=== PATIENT | male | born 1950 | race Caucasian/White ===

== ENCOUNTER → 2024-06-06 10:15 | Outpatient (REF) | payer MEDICARE, OTHER, SELFPAY | LOC: HWRCS 10:15 | PROVIDERS: ATTENDING PHYSICIAN Internal Medicine; FAMILY PHYSICIAN Family Medicine | DX: I25.810 Atherosclerosis of coronary artery bypass graft(s) without angina pectoris (principal); I10 Essential (primary) hypertension; I35.1 Nonrheumatic aortic (valve) insufficiency | CPT/HCPCS: 93306 ==

== ENCOUNTER 2025-04-08 06:48 | Inpatient (IN) | payer OTHER, SELFPAY ==
[2025-04-08] VITALS (11 sets, daily range): BP systolic 108–133; BP diastolic 63–84; PULSE 80–84; BMI 27.4
[2025-04-08 04:20] LABS: % Basophils 1.2 % (0-2); % Immature Granulocytes 0.3 % (0-0.5); % Monocytes 7.1 % (1.7-9.3); % Neutrophils 55.4 % (42.2-75.2); Absolute Basophils 0.1 10^3/uL (0-0.2); Absolute Eosinophils 0.2 10^3/uL (0-0.7); Absolute Lymphocytes 1.9 10^3/uL (1.2-3.4); Absolute Monocytes 0.4 10^3/uL (0.1-0.6); Absolute Neutrophils 3.3 10^3/uL (1.4-6.5); Hematocrit 29.5 % (39.0-52.0); Hemoglobin 8.8 g/dL (13.0-18.0); Mean Corp Hgb Conc. 29.8 g/dL (33.0-37.0); Mean Corpuscular Hgb 19.7 pg (27.0-31.0); Mean Platelet Volume 9.1 fL (7.4-10.4); Nucleated Red Blood Cells % 0 % (-); Platelet Count 288 10^3/uL (130-400); Red Blood Cell Count 4.47 10^6/uL (4.70-6.10); Red Cell Dist. Width 16.9 % (11.5-14.5); White Blood Cell Count 5.9 10^3/uL (4.8-10.8)
--- NOTE | 2025-04-08 04:33 | ED.GENMED ---
History of Present Illness
General
Chief Complaint: Breathing Problem
Source: patient and spouse
Exam Limitations: none
Time Seen by Provider: 04/08/25 04:03
Nursing documentation reviewed up to this point in time: agreed with
History of Present Illness
History of Present Illness:
This is a 74-year-old gentleman who resides at home with his . He has history of hypertension, hyperlipidemia, GERD, BPH as well as history of CAD with history of CABG 2000, PTCA with stent 2016.
He presents with complaints of mild URI symptoms that began 1 week ago. Moderate nasal congestion, intermittent clear rhinorrhea, intermittent dry cough occasionally productive of clear phlegm. He denies fever. Cough and cold symptoms had been
improving but tonight he awoke with somewhat abrupt onset of shortness of breath feeling that he could not take a full breath. Symptoms improved with sitting up but he continues with a sense that he cannot take a full deep breath.
No close contacts with similar symptoms.
No recent travel.
He denies leg pain or swelling.
He denies chest pain, denies palpitations, denies dizziness nor lightheadedness. He has however had intermittent fatigue more so with activity over the past 2 weeks.
He has also noted some black stools intermittently over the past 2 months. He denies abdominal pain, denies indigestion. He denies NSAID use. Chronically maintained on low-dose aspirin and Plavix.
Past History
Past History
ED Past Medical History: CAD, GERD, HTN, Hypercholesterolemia and Other (perirectal abscess, BPH)
ED Past Surgical History: Appendectomy, Bowel resection (Due to diverticulitis) and Cardiac (CABG 2000, PTCA with stent 2016)
Social History
Tobacco: Non-smoker
Alcohol: Occasional
Personal:
Living: with family
Employment: Retired
Family History
Family History: Other (Noncontributory)
Phy Exam
Physical Exam
Physical Exam:
GENERAL: 74-year-old gentleman appears his stated age, awake and alert, pleasant, appears in no acute distress. Respirations are easy and nonlabored. He is noted to have mild nasal, stuffy voice. No cough appreciated during exam. is
accompanying
EYE: pupils equal. Mildly pale conjunctiva. Anicteric
NECK: Supple, nontender, no meningismus, no significant adenopathy.
ENT: posterior pharynx is clear, oral mucosa is moist. TM clear b/l, nares have moderately boggy pale blue turbinates with scant clear rhinorrhea. Mild focal mucosal erythema right medial nasal jimmie.
CARDIAC: Irregularly irregular at a rate of 70-80. No murmur.
LUNGS: Clear breath sounds bilaterally, no acute respiratory distress, no wheezes/rales/rhonchi
ABDOMEN: Soft, nondistended, without focal tenderness, normoactive BS.
Rectal exam reveals scant brown stool within the vault that is heme-negative.
NEUROLOGICAL: Alert and oriented x3, no focal neuro deficits.
SKIN: Warm and dry, mildly pale in color, skin intact. No rash.
MUSCULOSKELETAL: No C/C/E. peripheral pulses are full and equal b/l. No palpable tenderness.
PSYCH: Normal and appropriate interaction.
Scores
Heart Failure Risk
Heart Failure Risk Score: Yes
History of Stroke or TIA: No
History of intubation for respiratory distress: No
Heart rate on ED arrival >/= 110: No
SaO2 <90% on arrival on room air: No
HR >/=110 during 3min walk test (or too ill to perform test): Yes
ECG has acute ischemic changes: No
Urea >/=12mmol/L (BUN 33.6mg/dL): No
Serum CO2>/=35mmol/L: No
Troponin I or T elevated to [place] Level (0.4mg/dL): No
NT-proBNP >/=5,000ng/L (5,000pg/ml): No
HF Risk Score: 2
Admission Status: MEDIUM RISK 9.2% Consider observation or discharge to home with homecare & f/u visit to PCP/Administrative Intern, or SNF for treatment
Course
Orders/Labs/Results
Orders:
Orders
04/08/25 04:05
Electrocardiogram (*1) Urgent
Reason for Study: Shortness of Breath
EKG- Treatment ONCE
04/08/25 04:09
Complete Blood Count/With Diff Urgent
Comprehensive Metabolic Panel Urgent
D-Dimer Urgent
NT-proBNP Urgent
Troponin I Urgent
04/08/25 05:37
CR Chest - 2 Views Urgent
Comment:
Reason For Exam: cough, SOB
04/08/25 05:43
Pantoprazole [Protonix IV] 40 mg IV NOW STA
04/08/25 06:00
Flush (0.9% Sodium Chloride) [Flush (Nss)] See Dose Instructions IV PER PROTOCOL
04/08/25 06:01
Furosemide [Lasix] 40 mg IV NOW STA
04/08/25 06:26
Admit/Transfer Patient As Directed
Co-Sign Provider:
Level of Care: Inpatient admission
Assign to:: Telemetry
Physician / Group: Ela
Diagnosis: symptomatic anemia
Reason for Telemetry: Subacute Heart Failure
Date to Stop Telemetry: 04/10/25
Time to Stop Telemetry: 11:00
Reason for Hospitalization: symptomatic anemia
Expected length of stay greater than two midnights?: Yes
ELOS- Estimated Length of Stay in days: 2
I certify the patient meets the requirements for IP care: Yes
PRN Pain Medication Management As Directed
May give lesser potent ordered pain med per pt: Yes
preference::
Protocol:: Medication orders for pain may be administered in a
manner that supports deferring to patient preference
when the pt is:
- Requesting an ordered lesser potent pain medication.
Least to most potent pain medications are defined
as: acetaminophen < NSAID < tramadol < opioids
(morphine, oxycodone, hydromorphone).
- Requesting a lesser dose of the same medication IF
ORDERED.
- Requesting a less intrusive route of administration
if both routes are prescribed by the provider (PO <
IV).
04/08/25 06:27
Code Status As Directed
Resuscitation Status: Full Code
04/10/25 11:00
DC Protocol for Telemetry ONCE
Abnormal Lab Results
04/08/25
04:09
RBC 4.47 L 10^6/uL
(4.70-6.10)
Hgb 8.8 L g/dL
(13.0-18.0)
Hct 29.5 L %
(39.0-52.0)
MCV 66.0 L fL
(80.0-94.0)
MCH 19.7 L pg
(27.0-31.0)
MCHC 29.8 L g/dL
(33.0-37.0)
RDW 16.9 H %
(11.5-14.5)
D-Dimer 0.71 H ug/mlFEU
(0.00-0.50)
Chloride 109 H mmol/L
(98-107)
Glucose 106 H mg/dl
(70-99)
04/08/25 04:09
04/08/25 04:09
Vital Signs
Initial and Last Documented VS:
Initial Vital Signs
Temp Pulse Resp BP Pulse Ox
97.5 F 68 24 108/64 100
04/08/25 03:59 04/08/25 03:59 04/08/25 03:59 04/08/25 03:59 04/08/25 03:59
Last Documented Vital Signs
Temp Pulse Resp BP Pulse Ox
97.5 F 80 17 133/84 99
04/08/25 03:59 04/08/25 06:17 04/08/25 06:00 04/08/25 06:17 04/08/25 06:00
MDM/Problems Addressed
Differential Diagnosis Includes:
Concern for viral URI, pneumonia, CHF, GERD, ACS, PE.
Overall nontoxic in appearance. Vital signs within normal limits. Pulse ox 100% on room air.
Will check labs including troponin, D-dimer.
Will check EKG.
Will consider imaging depending on results.
Chronic conditions affecting care: HTN and CAD
*Radiology
Radiology exam reviewed: preliminary read by ED provider (Chest x-ray shows mildly increased interstitial markings compared to previous concern for mild CHF.)
*Pulse Oximetry
Patient hypoxic: no
*EKG
Interpreted by ED Provider?: Yes
Interpretation: abnormal
Comparison EKG: changes noted (Atrial fibrillation with controlled ventricular response is new compared to previous EKG January 2022 showing normal sinus rhythm with unifocal PVCs)
Rate: normal
Rhythm: a-fib
Redkey: normal axis
Interval: normal QT interval
QRS Pattern: normal QRS
Ischemia: no ischemia
*Parts Advisor Interpretation
Rate: normal
Interpretation: abnormal
Rhythm: a-fib
*Critical Care Note
Total Time (30-74mins, 75-104mins- exclusive of procedures): Not Applicable
Update Note
Update Note:
04:45
Labs thus far remarkable for moderate anemia with microcytic indices which is new compared to previous labs 2021. Patient has had some black stools over the past 2 months and notes a 2-week history of moderate exertional fatigue.
He reports undergoing unremarkable colonoscopy perhaps 5 years ago.
Routine visit with his PCP, Dr. Radah Pennington November of this year with reported unremarkable laboratory studies at that time.
Although rectal exam negative for blood I have significant concern for slow GI blood loss. Concern for symptomatic anemia.
Also note that EKG shows atrial fibrillation with controlled ventricular response. Patient has no prior history of A-fib. At this point unclear as to onset of A-fib but he remains hemodynamically stable.
05:40
D-dimer normal when corrected for age.
BNP is elevated at 2000. Troponin is normal.
Chest x-ray concerning for mild CHF. I suspect CHF is related to anemia.
Will give an IV dose of Lasix and admit to hospitalist service.
ED Attending Note
-
Portions of this chart may have been created with voice recognition software.� Occasional wrong word or��sound alike� substitutions may have occurred due to the inherent limitations of voice recognition software.
Discharge Plan
Departure
Patient Disposition: Admit
Date of Disposition: 04/08/25
Time of Disposition: 05:41
Admit to: Telemetry
Admit to doctor: Ela
Presentation/result/management discussed w/ accepting MD/DO: Hospitalist
Condition: Fair
Discharge Problem:
Symptomatic anemia, Atrial fibrillation with controlled ventricular rate, Atrial fibrillation, new onset
Interventions
Interventions:
*Risk Screen - Suicide Last Done: 04/08/25 03:59
*General Assessment Last Done: 04/08/25 04:06
*Neglect/Abuse Screening Last Done: 04/08/25 03:59
*ED- Fall Risk Assessment Last Done: 04/08/25 04:06
*ED COVID-19 Vaccine History Last Done: 04/08/25 04:06
ED- Cardiac Assessment Last Done: 04/08/25 04:25
ED- Pulmonary Assessment Last Done: 04/08/25 04:25
[2025-04-08 04:50] LABS: ALT (SGPT) 32 U/L (0-50); AST (SGOT) 45 U/L (17-59); Albumin 4.2 g/dl (3.5-5.0); Alkaline Phosphatase 57 U/L (38-126); Blood Urea Nitrogen 19 mg/dl (9-20); Calcium 9.5 mg/dl (8.4-10.2); Carbon Dioxide 26 mmol/L (22-30); Chloride 109 mmol/L (98-107); Estimated Creatinine Clearance 49 ml/min; Glucose 106 mg/dl (70-99); Potassium 4.6 mmol/L (3.5-5.1); Sodium 141 mmol/L (135-145); Total Bilirubin 0.6 mg/dl (0.2-1.3); Total Protein 6.9 g/dl (6.3-8.2); eGFR > 60.00
[2025-04-08 04:57] LABS: D-Dimer 0.71 ug/mlFEU (0.00-0.50)
[2025-04-08 05:00] LABS: NT-proBNP 2040 pg/ml; Troponin I < 0.012 ng/ml
--- NOTE | 2025-04-08 05:45 | HPS.HSE ---
Family Physician
-
Family Physician: Radha Pennington
Chief Complaint
-
Acute shortness of breath, nocturnal dyspnea
History of Present Illness
This is a 74-year-old with past medical history significant for CAD status post CABG, status post stenting last in 2017, hypertension, GERD/esophagitis, history of ischemic colitis who presents to the emergency department with acute shortness of
breath and nocturnal dyspnea.
Patient reported that at around 2 AM he woke from sleep feeling very short of breath. He felt that he could not catch his breath and he had to sit up. When he sat up the bleeding was little bit improved but still symptomatic. He broke into a
sweat and felt nauseous. After a few minutes he tried to lay back down and he got more short of breath again and he had to sit up. Due to the symptoms he and his spouse said come to the emergency department. He denies heaviness or chest pain. He
denies any pleuritic symptoms. He denies any radiation.
Patient reported that over the last 6 weeks he has been having more exertional dyspnea and mostly exertional fatigue. 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 He denies exertional chest pain.
He denies feeling dizzy or lightheaded. He denies any palpitations. Patient reported that he has had recent back more constipated stools. This is exacerbated his hemorrhoidal bleeding episodes resulting in occasionally filling the bowl with some
blood. He is on dual antiplatelet therapy but denies any abdominal pain nausea or vomiting. Patient denies other reflux symptoms. He is currently taking pantoprazole daily.
He denies any lower extremity edema. He denies any prior episodes of nocturnal dyspnea or orthopnea. Patient stated that when he last had his CABG and stenting he never had chest pain. He was noted to have high blood pressure went for a
cardiology evaluation and thereafter required a CABG. He has not had any symptomatic chest pain since then.
He denies any history of atrial fibrillation.
In the emergency department he was satting 100% on room air, temperature was 91.5, blood pressure was 117/70 with pulse of 84. ECG shows atrial fibrillation at rate of 66. Her chest x-ray shows increased interstitial markings but no consolidation
or effusion.
Troponin was negative at 0.012. BNP was elevated at 2039. CBC was notable for hemoglobin of 8.8 with MCV of 66 and a platelet count of 281. Electrolytes are within normal limits. BUN/creatinine were similar to prior at 99 1.2. Echo from 2013
shows LV ejection fraction that is 60 to 65%, stage II diastolic dysfunction.
Medical History
Past Medical History
Past Medical History: Reports Other
Additional Past Medical History:
Coronary disease status post CABG x 2
Hypertension
Diverticular disease status post colon resection
Hypertension
History of ischemic colitis
Past Surgical History: Reports Other
Additional Past Surgical History:
CABG x 2, PIRES to LAD, YASEMIN to OM1 (2004)
Cardiac stenting of proximal and mid RCA 2016
Hemorrhoidectomy
Social History
Tobacco: Non-smoker
Alcohol: Occasional
Drug: None
Personal:
Living: With Family
Employment: Retired
Family History
Family History: Not pertinent
Allergies / Home Medications
Allergies reflects when Allergies were last updated in [facility].
Home Medications with original date entered in [facility]
Allergy/Medication List:
Allergies
Allergy/AdvReac Type Severity Reaction Status Date / Time
bee venom protein (honey bee) Allergy Rash Verified 04/08/25 04:02
Home Medications
aspirin 81 mg chewable tablet 81 mg PO DAILY Blood clot prevention/tx 07/10/17
atorvastatin 80 mg tablet 80 mg PO DAILY High cholesterol 07/10/17
clopidogrel 75 mg tablet 75 mg PO DAILY #30 tabs 07/10/17
pantoprazole 40 mg tablet,delayed release 40 mg PO DAILY Gastrointestinal issue 07/10/17
amlodipine 5 mg tablet 5 mg PO DAILY Blood pressure 02/26/21
ezetimibe 10 mg tablet 10 mg PO DAILY High cholesterol 02/26/21
folic acid 1 mg tablet 1 mg PO DAILY Supplement 02/26/21
metoprolol succinate 100 mg tablet,extended release 24 hr 100 mg PO BID Heart disease/condition 02/26/21
valsartan 160 mg-hydrochlorothiazide 25 mg tablet 1 ea PO DAILY Blood pressure 02/26/21
Review of Systems
-
History Source: Patient
Constitutional: Reports Fatigue
EENT: Reports No Symptoms
Respiratory: Reports Trouble Breathing
Cardiac: Reports Diaphoresis
Abdomen/GI: Reports No Symptoms
: Reports No Symptoms
Musculoskeletal: Reports No Symptoms
Skin: Reports No Symptoms
Neurological: Reports No Symptoms
Endocrine: Reports No Symptoms
Hematologic/Lymphatic: Reports No Symptoms
Psych: Reports No Symptoms
Physical Exam
Vital Signs
Vital Signs
Temp Pulse Resp BP Pulse Ox
97.5 F 84 16 117/73 100
04/08/25 03:59 04/08/25 04:15 04/08/25 04:15 04/08/25 04:05 04/08/25 04:15
Physical Exam
General: Well Developed, Well Nourished, No Apparent Distress, Comfortable and Conversant
HEENT: NormoCephalic, Anicteric, Moist mucous membranes and Atraumatic
Respiratory: Clear
Cardiac: S1/S2 and Irregular Rhythm
Breast: Deferred by me
GI: Soft, Non Tender, Non Distended and Normal Bowel Sounds
Rectal: Deferred by Provider
Genito-urinary: Deferred by me
Musculoskeletal: No Clubbing, No Cyanosis and No Edema
Skin: Warm
Neuro: AO x 3 and Nonfocal/grossly intact
Hematologic/Lymphatic: No Lymphadenopathy
Psych: Calm
Laboratory Results
-
04/08/25 04:09
04/08/25 04:09
Laboratory Results
Total Bilirubin 0.6 mg/dl (0.2-1.3) 04/08/25 04:09
AST 45 U/L (17-59) 04/08/25 04:09
ALT 32 U/L (0-50) 04/08/25 04:09
Alkaline Phosphatase 57 U/L (38-126) 04/08/25 04:09
Troponin I < 0.012 ng/ml 04/08/25 04:09
Data Reviewed
-
Diagnostic Radiology: Image Personally Visualized and interpreted
Medical Tests (Nuc Med, Echo, EKG etc): Image Personally Visualized and interpreted
Lab Data: Labs Reviewed by me
Old Records: Reviewed
Impression/Plan
-
IMPRESSION:
74-year-old with history of CAD status post CABG x 2, 20 years ago, stenting in 2016, hypertension, history of ischemic colitis in 2021 who presents to the emergency department with episode of nocturnal dyspnea/orthopnea, diaphoresis, no chest pain
and the recent history of the last 6 weeks of exertional fatigue/weakness. ECG was nonischemic and troponin is negative but was found to have new onset atrial fibrillation that is well-controlled. Patient is also found to have significant anemia
and elevated BNP. On exam he generally appears euvolemic but chest x-ray suggest mild interstitial edema.
PLAN:
1. Shortness of breath -multifactorial but acute episode of PND more suggestive of CHF versus ACS.
- admit to telemetry
- cycle cardiac enzymes
- since no cp and likely CHF will hold off further asa
- elevated bnp and orthopnea suggestive of new onset CHF, prior echo 2023 with diastolic dysfunction stage II and EF of 65%
- start lasix 20mg iv bid for now
- continue valsartan with hold parameters
- obtain echo, tsh,
- cardiology consultation
2. New onset AFIB - Rate controlled. ON metoprolol succinate 100mg bid for CAD.
- continue metoprolol
- CHADS2 > 2, AC recommendation
- will AC for now as there is concern for subacute blood loss anemia.
- GI consultation
3. Anemia - Microcytic anemia, Hgb 8.8, MCV 66. Prior Hgb was 13 with normal MCV in 2021 and presumably in early 2024 as it was not commented on by his physician. H/O dark large stools and intermittent bleeding hemorrhoids. On DAPT. No current
indication for plavix, stent placed 2016.
- hold plavix for now
- possible subacute gi bleed, clear liquid diet
- ppi iv bid
- hemoccult stool testing
- orthostatic vs
- iron panel, ferritin, retic
- likely will need IV iron
- GI consultation
DVT PPX - SCDs for now
Code status - Full Code
--- NOTE | 2025-04-08 06:00 | EDRN ---
Patient back from x-ray, hooked back up to monitor, Dr. Michaels in working on admission
[2025-04-08] MEDS: PROTONIX IV 40 MG IV ×2 (06:16→20:25)
[2025-04-08] MEDS: FLUSH (NSS) 1 FLUSH IV (06:17)
[2025-04-08] MEDS: LASIX 40 MG IV (06:17)
--- NOTE | 2025-04-08 09:15 | PTCARENOTE ---
Received pt from ED via stretcher. Pt AAOX3. Pox: 98% RA. A fib on electronic device monitor. Patient denies chest pain/SOB. Call corona within reach. Plan of care ongoing.
--- NOTE | 2025-04-08 09:42 | CON.GI ---
Addendum entered and electronically signed by Bettye Gan Do, MD 04/08/25 11:36:
I saw and examined the patient.
The ORTHOPEDIC CODER's note was reviewed and I agree with the note.
Comment: Casey is a 74yo M with h/o CABG (25yrs ago), colonic resection for diverticulitis and HTN who presents for SOB. Now resolved. He was noted by ER to be in new afib. GI consulted for anemia 8.8 noted to be 9.9 in Nov 2023. He reports
some BRBPR on toilet paper last 1.5yrs ago. He has h/o hemorrhoidectomy in past. He denies CP, palp, abd pain, diarrhea, constipation or wt loss. Does use ASA 81 and plavix last dose 526 AM. Vitals stable HR not fast, NTTP, NABS. Labs
reviewed. EGD/colon with Dr Bee last 2020
Impression
- Anemia
Heme neg brown stool with h/o BRBPR ddx includes hemorrhoids, ectasia, polyp or ulcer
Await iron panel
- New afib
- CABG
- H/o colonic resection for diverticulitis
- HTN
- H/o hemorrhoidectomy
- GERD
Recommendations
- Await iron studies, vit B12 and foalte
- C/w PPI
- Hold plavix last dose 26 AM
- Ok to c/w ASA 81mg daily
- Await cardiology evaluation. Pending above can determine if will do EGD/colon inpatient vs outpatient next week. Will need plavix washout
Recommendation
Original Note:
Consultation
-
Date/Time Consultation Requested: 04/08/25844
Date/Time Consultation Performed: 04/08/25939
Requesting Provider: Kerri Farmer MD
Performing Provider: ARNOLD Nelson, bettye Mtz MD
Reason for Consultation: anemia
Medical History
Chief Complaint / HPI
Chief Complaint: shortness of breath
History of Present Illness:
Pt is a 74yo with hx CAD with prior CABG/stents on chronic Plavix , HTN, diverticulitis with prior resection, prior ischemic colitis, GERD, esophagitis, HTN, hemorrhoidectomy with onset of shortness of breath with concern for cardiac etiology with
CHF and also noted with new onset afib. Asked to see with anemia with hbg 8.8 on admission with MCV 66. Prior hbg in December 9.9 with MCV 70 but noted normal in 11/2023. Noted heme neg in ER. Last EGD [address] Bee with noted gastritis,
normal duodenum and mild chronic inactive gastritis, bx neg. colonoscopy 2020with Dr. Bee with TA polyps, neg h pylori, neg metaplasia. hx occasional NSAID use 1 dose per month.
At this time patient admits to seeing red blood at time. Some times blood on paper and occasional 1 time per month with red in toilet bowl. Pt otherwise denies dysphagia, GERD, nausea, vomiting, abdominal pain , diarrhea, constipation, or
black stools. Pt was noted heme neg on ER.
Past Medical History
Past Medical History: GERD, HTN, Hypercholesterolemia and Other (diverticulitis, esophagitis, hemorrhoids, ischemic colitis )
Past Surgical History: Appendectomy, Bowel Resection, Cardiac (CABG, prior stents) and Other (I+D of post anal space abscess, retinal surgery )
Social History
Tobacco: Non-Smoker
Alcohol: Occasional (1-2 drinks 2-3 times per week)
Drug: Marijuana
Personal:
Living: With Family
Employment: Retired
Family History
Family History: Other (no family hx GI problems)
Allergies / Home Medications
Allergy/AdvReac Type Severity Reaction Status Date / Time
bee venom protein (honey bee) Allergy Rash Verified 04/08/25 04:02
�Medication �Instructions �Recorded
aspirin 81 mg chewable tablet 81 mg PO DAILY Blood clot 07/10/17
prevention/tx
atorvastatin 80 mg tablet 80 mg PO DAILY High cholesterol 07/10/17
clopidogrel 75 mg tablet 75 mg PO DAILY #30 tabs 07/10/17
pantoprazole 40 mg tablet,delayed 40 mg PO DAILY Gastrointestinal 07/10/17
release issue
amlodipine 5 mg tablet 5 mg PO DAILY Blood pressure 02/26/21
ezetimibe 10 mg tablet 10 mg PO DAILY High cholesterol 02/26/21
folic acid 1 mg tablet 1 mg PO DAILY Supplement 02/26/21
metoprolol succinate 100 mg 100 mg PO BID Heart 02/26/21
tablet,extended release 24 hr disease/condition
melatonin 10 mg tablet 10 mg PO HS 04/08/25
valsartan 160 1 tab PO DAILY 04/08/25
mg-hydrochlorothiazide 25 mg tablet
Review of Systems
-
History Source: Patient
Constitutional: Reports No Symptoms
EENT: Reports No Symptoms
Respiratory: Reports Trouble Breathing (sudden onset prior to admission )
Cardiac: Reports No Symptoms
Abdomen/GI: Reports Bloody Stools (occasional red blood per rectum )
: Reports No Symptoms
Musculoskeletal: Reports No Symptoms
Skin: Reports No Symptoms
Neurological: Reports No Symptoms
Endocrine: Reports No Symptoms
Hematologic/Lymphatic: Reports Bleeding (occasional rectal bleeding)
Vital Signs
Temp Pulse Resp BP Pulse Ox
97.8 F 90 16 129/80 98
04/08/25 09:02 04/08/25 09:02 04/08/25 09:02 04/08/25 09:02 04/08/25 09:02
Physical Exam
Exam
General: Well Developed, Well Nourished and No Apparent Distress
HEENT: Normocephalic and Anicteric
Respiratory: Clear
Cardiac: Irregular Rhythm (afib on Monitor )
GI: Non Tender and Normal Bowel Sounds
Musculoskeletal: No Clubbing and No Cyanosis
Skin: Warm and Dry
Neuro: Awake, Alert and AO x 3
Psych: Calm
Results
WBC 5.9 10^3/uL (4.8-10.8) 04/08/25 04:09
Hgb 8.8 g/dL (13.0-18.0) L 04/08/25 04:09
Hct 29.5 % (39.0-52.0) L 04/08/25 04:09
MCV 66.0 fL (80.0-94.0) L 04/08/25 04:09
Plt Count 288 10^3/uL (130-400) 04/08/25 04:09
Absolute Neuts (auto) 3.3 10^3/uL (1.4-6.5) 04/08/25 04:09
Sodium 141 mmol/L (135-145) 04/08/25 04:09
Potassium 4.6 mmol/L (3.5-5.1) 04/08/25 04:09
Chloride 109 mmol/L (98-107) H 04/08/25 04:09
Carbon Dioxide 26 mmol/L (22-30) 04/08/25 04:09
BUN 19 mg/dl (9-20) 04/08/25 04:09
Creatinine 1.2 mg/dL (0.7-1.3) 04/08/25 04:09
Calcium 9.5 mg/dl (8.4-10.2) 04/08/25 04:09
Total Bilirubin 0.6 mg/dl (0.2-1.3) 04/08/25 04:09
AST 45 U/L (17-59) 04/08/25 04:09
ALT 32 U/L (0-50) 04/08/25 04:09
Alkaline Phosphatase 57 U/L (38-126) 04/08/25 04:09
Diagnostic Image Results:
Prior GI Procedures:
11/2020 Bee colonoscopy - One 5 mm polyp in the descending colon, removed with
a hot snare. Resected and retrieved.
- One 4 mm polyp in the descending colon, removed with
a hot snare. Resected and retrieved.
- Patent end-to-side colo-colonic anastomosis,
characterized by healthy appearing mucosa.
- The examination was otherwise normal.
bx TA
11/2020 EGD Bee - Z-line regular, 38 cm from the incisors. Biopsied.
- Chronic gastritis. Biopsied.
- Normal second portion of the duodenum.
bx mild chronic inactive gastritis, H pyloi not identified, neg metaplasia
Assessment / Plan
-
Pt is a 74yo with hx CAD with prior CABG/stents on chronic Plavix , HTN, diverticulitis with prior resection, prior ischemic colitis, GERD, esophagitis, HTN, hemorrhoidectomy with onset of shortness of breath with concern for cardiac etiology with
CHF and also noted with new onset afib. Asked to see with anemia with hbg 8.8 on admission with MCV 66. Prior hbg in December 9.9 with MCV 70 but noted normal in 11/2023. Noted heme neg in ER. Last EGD [address] Bee with noted gastritis,
normal duodenum and mild chronic inactive gastritis, bx neg. colonoscopy 2020with Dr. Bee with TA polyps, neg h pylori, neg metaplasia. hx occasional NSAID use 1 dose per month.
-shortness of breath on admission
-occasional bright red blood per rectum
-new afib on admission
-elevated BNP
-hx CAD stent/CABG on chronic Plavix
other med problems:
-HTN
-diverticulitis with prior resection
-hx ischemic colitis
-GERD
-esophagitis
-HTN
-hemorrhoidectomy
PLAN:
etiology of anemia unclear -- occasional rectal bleeding prior to admission but heme neg in ER - cannot rule out PUD, ectasia, mass vs other
last EGD/colon completed in 2020
similar labs noted in December with hbg 9.9 and MCV 70 but normal hbg in 2023
last Plavix 04/07 cont to hold
t/c eventual EGD/colon IP vs OP
await cardiology input with new afib to see if anticoagulation needed and optimize medically with shortness of breath on admission
trend hbg
await iron studies, add B12 and folate
cont PPI
ok for low residue diet
-
-
Thank you for consultation and allowing me to participate in the patient's care. Please call the toll transmission worker GI physician during the after hours with any questions or concerns.
[2025-04-08] MEDS: LIPITOR 80 MG PO (09:47)
[2025-04-08] MEDS: DIOVAN 160 MG PO (09:47)
[2025-04-08] MEDS: FOLVITE 1 MG PO (09:48)
[2025-04-08] MEDS: ZETIA 10 MG PO (09:48)
[2025-04-08] MEDS: TOPROL XL 100 MG PO ×2 (09:48→20:25)
[2025-04-08] MEDS: NORVASC 5 MG PO (09:48)
[2025-04-08] MEDS: LOW STRENGTH ASPIRIN 81 MG PO (09:48)
[2025-04-08 10:40] LABS: % Basophils 1.1 % (0-2); % Eosinophils 2.9 % (0-6); % Immature Granulocytes 0.3 % (0-0.5); % Monocytes 5.3 % (1.7-9.3); % Neutrophils 67.4 % (42.2-75.2); Absolute Basophils 0.1 10^3/uL (0-0.2); Absolute Eosinophils 0.2 10^3/uL (0-0.7); Absolute Lymphocytes 1.4 10^3/uL (1.2-3.4); Absolute Monocytes 0.3 10^3/uL (0.1-0.6); Absolute Neutrophils 4.2 10^3/uL (1.4-6.5); Hematocrit 29.6 % (39.0-52.0); Hemoglobin 8.9 g/dL (13.0-18.0); Mean Corp Hgb Conc. 30.1 g/dL (33.0-37.0); Mean Corpuscular Volume 66.5 fL (80.0-94.0); Mean Platelet Volume 9.3 fL (7.4-10.4); Nucleated Red Blood Cells % 0 % (-); Platelet Count 295 10^3/uL (130-400); Red Blood Cell Count 4.45 10^6/uL (4.70-6.10); Red Cell Dist. Width 17.1 % (11.5-14.5); White Blood Cell Count 6.3 10^3/uL (4.8-10.8)
[2025-04-08 10:41] LABS: Reticulocyte Count 0.9 % (0.4-2.8)
[2025-04-08 10:57] LABS: Troponin I < 0.012 ng/ml
[2025-04-08 11:03] LABS: Iron 29 ug/dl (49-181); Magnesium 1.7 mg/dl (1.6-2.3)
[2025-04-08 11:13] LABS: Percent Saturation 6 % (20-50); Total Iron Binding Capacity 451 ug/dl (261-462)
[2025-04-08 11:32] LABS: TSH Reflex To Free T4 1.12 uIU/ml (0.47-4.68)
--- NOTE | 2025-04-08 12:33 | W.PN.HOSP.TC ---
Today's Communication/Plan
-
Trend CBC
Hold Plavix
Continue diuresis for now
Add on ferritin to iron panel, consider IV iron
Follow-up echo
Assessment / Plan
Assessment / Plan
#Dyspnea
-Differentials include symptomatic anemia, new AF, new CHF versus multifactorial
-Presented with orthopnea, elevated BNP; was started on Lasix IV and PPI
-Continue IV PPI and workup into anemia as below
-Continue IV Lasix for now and monitor I's/O's and BMP
-Follow-up echocardiogram
-See below for more detail
#Symptomatic anemia
#H/O diverticulosis s/p sigmoidectomy
-Presented with hemoglobin of 8.8�8.9; previous labs with Hgb near normal
-Differentials include LGIB such as diverticular bleed (transverse colon?), versus brisk UGIB
-Has history of sigmoidectomy for previous diverticular bleeding
-States that he noted blood mixed into the stool and filling his toilet bowl
-Hemoglobin stabilized on repeat blood counts here
-Will continue with IV PPI twice daily, continue CLD
-GI following, planning EGD/colonoscopy IP versus OP after Plavix washout
#New onset AF
-[id number] 4, nonvalvular; presented in rate controlled AF
-Was continued on home metoprolol, holding off on AC due to bleeding as above
-Will likely eventually need long-term AC for cardioembolism risk reduction
-Continue to monitor on telemetry for now and plan for AC when bleeding stabilized
#CAD s/p CABG and PCI
-Home regimen includes metoprolol, DAPT, high intensity statin
-Last stent was in 2017, no indication for DAPT after 1 year post stent
-Discontinued Plavix, continued on aspirin and remainder of CAD regimen
-Planning for EGD/colonoscopy after Plavix washout
#Primary hypertension
-No known history of hypertensive systemic disease
-Home regimen includes amlodipine, metoprolol succinate, valsartan�HCTZ
-Holding HCTZ in the context of bleeding remainder of meds with hold parameters continued
-Continue to monitor BP
#H/O ischemic colitis
-Likely related to ASCVD history
-Low suspicion for recurrence, no abdomen pain
Diet: Low residue
DVT prophylaxis: SCDs
CODE STATUS: Full code
Anticipated Discharge: > 48 hours
Subjective/Interval History
-
Date of Service: April 08, 2025
Seen and examined at the bedside. No acute events reported overnight. AFVSS this morning.
Denies further recurrence of bleeding. Hemoglobin stabilized at 8.8�8.9
Denies new complaints
Objective Data
-
Labs:
Laboratory Results
04/08/25 04/08/25
04:09 10:06
WBC 5.9 6.3
Hgb 8.8 L 8.9 L
Hct 29.5 L 29.6 L
Plt Count 288 295
Sodium 141
Potassium 4.6
Chloride 109 H
Carbon Dioxide 26
BUN 19
Creatinine 1.2
Glucose 106 H
Calcium 9.5
Total Bilirubin 0.6
AST 45
ALT 32
Alkaline Phosphatase 57
Vital Signs:
Vital Signs
Temp Pulse Resp BP Pulse Ox
98.1 F 90 16 129/80 96
04/08/25 11:34 04/08/25 09:47 04/08/25 11:34 04/08/25 09:47 04/08/25 11:34
I&O
04/07/25 04/08/25 04/09/25
06:59 06:59 06:59
Output Total 1300 / 1300
Balance -1300 / -1300
Review of Systems
-
History Source: Patient
All other systems: Reviewed and negative
Physical Exam
-
General: Well Developed, Well Nourished, No Apparent Distress and Comfortable
HEENT: Normocephalic, Atraumatic, Moist Mucous Membranes and Anicteric
Respiratory: Clear to Auscultation and Non Labored Respirations; Negative Accessory Resp Muscle Use
Cardiac: S1/S2 and Irregular Rhythm; Negative Murmur, Rub, Gallop or Tachycardic
GI: Soft, Nontender, Nondistended and Normal Bowel Sounds
Musculoskeletal: No Clubbing, No Cyanosis and No Edema
Skin: Warm, Dry and Normal Turgor; Negative Rash
Neuro: AO x 3 and Nonfocal/Grossly Intact; Negative Tremors
Psych: Calm
Data Reviewed
-
Labs: Labs Reviewed by me and Discussed with Patient
[2025-04-08 14:14] LABS: Ferritin 5.8 ng/ml (17.9-464.0)
[2025-04-08] MEDS: LASIX 20 MG PO (16:31)
[2025-04-08 17:10] LABS: Troponin I < 0.012 ng/ml
[2025-04-08] MEDS: NSS (PRESERVATIVE FREE) 10 ML IV (20:25)
[2025-04-09 03:00] VITALS: BP 106/59
[2025-04-09 06:00] VITALS: BMI 26.7
[2025-04-09 07:29] LABS: Hematocrit 33.3 % (39.0-52.0); Hemoglobin 9.7 g/dL (13.0-18.0); Mean Corp Hgb Conc. 29.1 g/dL (33.0-37.0); Mean Corpuscular Hgb 19.3 pg (27.0-31.0); Mean Corpuscular Volume 66.3 fL (80.0-94.0); Mean Platelet Volume 9.2 fL (7.4-10.4); Platelet Count 304 10^3/uL (130-400); Red Blood Cell Count 5.02 10^6/uL (4.70-6.10); White Blood Cell Count 7.5 10^3/uL (4.8-10.8)
[2025-04-09 07:55] VITALS: BP 117/76
[2025-04-09 08:04] LABS: HDL Cholesterol 51 mg/dl; LDL Cholesterol, Calculated 39 mg/dl; Total Cholesterol 111 mg/dl (50-199); Triglyceride 108 mg/dl (10-149); Very Low Density Lipoprotein 21 mg/dl (0-30)
[2025-04-09] MEDS: LASIX 20 MG PO (08:18)
[2025-04-09] MEDS: LIPITOR 80 MG PO (08:18)
[2025-04-09] MEDS: FOLVITE 1 MG PO (08:18)
[2025-04-09] MEDS: ZETIA 10 MG PO (08:18)
[2025-04-09] MEDS: NORVASC 5 MG PO (08:18)
[2025-04-09] MEDS: DIOVAN 160 MG PO (08:18)
[2025-04-09] MEDS: LOW STRENGTH ASPIRIN 81 MG PO (08:18)
[2025-04-09] MEDS: TOPROL XL 100 MG PO (08:19)
[2025-04-09] MEDS: PROTONIX IV 40 MG IV (08:19)
[2025-04-09] MEDS: NSS (PRESERVATIVE FREE) 10 ML IV (08:19)
--- NOTE | 2025-04-09 08:53 | CON.CAR ---
Addendum entered and electronically signed by Melvin Kelly MD 04/09/25 10:35:
Creatinine 1.3. Hold additional Lasix. Suspect he is euvolemic. Reported dry weight 170 pounds.
Original Note:
Consultation
Consultation Request
Date/Time Consultation Requested: 04/08/25 8:43 AM
Date/Time Consultation Performed: 04/09/25 8:30 AM
Requesting Provider: Kerri Mahmood MD
Performing Provider: Melvin Kelly MD
Reason for Consultation: afib
Medical History
-
Chief Complaint: atrial fibrillation
History of Present Illness:
Patient is a 74-year-old man known to Dr. Sullivan with past medical history of coronary artery disease status post CABG and PCI (last stent 2016), hypertension, and colonic resection for diverticulitis who presents with new onset shortness of
breath. Cardiology is consulted for new onset rate controlled atrial fibrillation. Patient reports that 2 nights ago he woke from sleep with shortness of breath. He felt like he could not catch his breath and it was difficult to lay flat. He
came to the ER where he was given Lasix 20 mg IV twice daily. Breathing has since dramatically improved and he was able to lay flat last night. He was found to be in rate controlled atrial fibrillation which is new for him. He also has a subacute
anemia with hemoglobin 8.8 on admission. He reports no obvious blood loss. GI was consulted and Plavix was held (last dose 04/07). GI recommended anemia workup and possible EGD/colonoscopy inpatient versus outpatient.
Past Medical History
Past Medical History: CAD and HTN
Past Surgical History: Bowel Resection
Social History
Tobacco: Non-Smoker
Family History
Family History: Reviewed & Not Pertinent
Allergies / Home Medications
Allergy/AdvReac Type Severity Reaction Status Date / Time
bee venom protein (honey bee) Allergy Rash Verified 04/08/25 04:02
�Medication �Instructions �Recorded �Confirmed �Type
aspirin 81 mg chewable tablet 81 mg PO DAILY Blood clot 07/10/17 04/08/25 History
prevention/tx
atorvastatin 80 mg tablet 80 mg PO DAILY High cholesterol 07/10/17 04/08/25 History
clopidogrel 75 mg tablet 75 mg PO DAILY #30 tabs 07/10/17 04/08/25 Rx
pantoprazole 40 mg tablet,delayed 40 mg PO DAILY Gastrointestinal 07/10/17 04/08/25 History
release issue
amlodipine 5 mg tablet 5 mg PO DAILY Blood pressure 02/26/21 04/08/25 History
ezetimibe 10 mg tablet 10 mg PO DAILY High cholesterol 02/26/21 04/08/25 History
folic acid 1 mg tablet 1 mg PO DAILY Supplement 02/26/21 04/08/25 History
metoprolol succinate 100 mg 100 mg PO BID Heart 02/26/21 04/08/25 History
tablet,extended release 24 hr disease/condition
melatonin 10 mg tablet 10 mg PO HS Sleep 04/08/25 04/08/25 History
valsartan 160 1 tab PO DAILY Blood Pressure 04/08/25 04/08/25 History
mg-hydrochlorothiazide 25 mg tablet
Review of Systems
-
All other systems: Negative unless noted
Physical Exam
Vital Signs
Temp Pulse Resp BP Pulse Ox
98.8 F 76 18 117/76 100
04/09/25 07:55 04/09/25 08:19 04/09/25 07:55 04/09/25 08:19 04/09/25 07:55
Lab Results
04/09/25 07:00
Troponin I < 0.012 ng/ml 04/08/25 16:37
Qws-M-Ctzeqybxien Pept 2040 pg/ml 04/08/25 04:09
Physical Exam
General: Well Developed and Well Nourished
Respiratory: Crackles and Non Labored Respirations
Cardiac: S1/S2 and Irregular Rhythm; Negative Murmur or Peripheral Edema
Neuro: AO x 3
Impression / Plan
-
Patient is a 74-year-old man with past medical history of coronary artery disease status post CABG and PCI (last stent 2016), hypertension, and colonic resection for diverticulitis who presents with new onset shortness of breath. Cardiology is
consulted for new onset rate controlled atrial fibrillation.
Hay Sorter: Dr. Sullivan
Persistent atrial fibrillation
-New this admission. Rate controlled. Asymptomatic. Suspect that he did not tolerate it well and this is the cause of his mild CHF.
-He would benefit from cardioversion but we first need to sort out his anemia so that he can be anticoagulated
-CHADsVasc 3 (age, HTN, CAD)
-Continue Metoprolol 100mg BID for rate control
HFpEF, acute on chronic
-Severe exacerbation requiring IV diuretics and close monitoring of labs and telemetry. Suspect he decompensated from atrial fibrillation
-TTE 04/08/25: LVEF 55-60%, mild LVH, mod AR, PASP 25-30 mmHg
-Continue IV Lasix 20mg BID
-Ask CM to mendieta [id number]
Anemia, subacute
-Hemoglobin 8.8 on presentation. Per GI was 9.9 in Dec 2024 but normal in Nov 2023. Patient reports intermittent BRBPR
-Iron studies consistent with iron deficiency anemia
-As above, he would ideally be anticoagulated for new afib but need to figure out bleeding first
-Will coordinate with GI. They would like Plavix washout (last dose 04/07) prior to EGD/colo. He is on IV PPI.
-Continue to hold Plavix. Do not stop ASA.
CAD s/p CABG, PCI
-CABG ~25y ago. Last PCI in 2017 with overlapping stents for complex RCA disease. Patent PIRES-LAD and [id number] at that time.
-Continue ASA, Metoprolol, statin, and Zetia
-Hold Plavix for anemia and GI work-up
-If he starts systemic AC, would recommend stopping ASA and doing Plavix + AC
Hypertension
-Controlled
-Continue amlodipine, metoprolol and valsartan
Data Reviewed
-
EKG: Tracing Personally Visualized and interpreted, Discussed with Physician and Discussed with Patient
Radiology: Image Personally Visualized and interpreted
Medical Tests (Nuc Med, Echo etc): Report Reviewed by me and Discussed with Patient
Labs: Labs Reviewed by me, Discussed with Physician and Discussed with Patient
--- NOTE | 2025-04-09 09:08 | W.PN.HOSP.TC ---
Today's Communication/Plan
-
Discharged on aspirin
Hold Plavix
EGD/colonoscopy on 04/15 as OP
Consideration for DOAC and Plavix after scopes
Follow-up in office with cardiology for DCCV
Assessment / Plan
Assessment / Plan
#Dyspnea
-Differentials include symptomatic anemia, new AF, new HFpEF versus multifactorial
-Presented with orthopnea, elevated BNP; was started on Lasix IV and PPI
-Echocardiogram with normal LVEF, valves, wall motion; mild LVH
-Continue IV PPI and workup into anemia as below
-Stop diuretics as he appears euvolemic
-See below for more detail
#Symptomatic anemia
#Severe iron deficiency anemia
#H/O diverticulosis s/p sigmoidectomy
-Presented with hemoglobin of 8.8�8.9; previous labs with Hgb near normal
-Differentials include LGIB such as diverticular bleed (transverse colon?), versus brisk UGIB
-Has history of sigmoidectomy for previous diverticular bleeding
-States that he noted blood mixed into the stool and filling his toilet bowl
-Hemoglobin stabilized on repeat blood counts here
-Will continue to hold Plavix and continue with aspirin for now
-GI following, planning EGD/colonoscopy as OP on 04/15
-If no signs of active bleeding will be started on DOAC with Plavix after 04/15
-Give 1 dose IV iron here then transition to daily ferrous sulfate
-Repeat iron studies in 4 to 6 weeks
#New onset AF
-[id number] 4, nonvalvular; presented in rate controlled AF
-Was continued on home metoprolol, holding off on AC due to bleeding as above
-Will likely eventually need long-term AC for cardioembolism risk reduction
-Continue to monitor on telemetry for now and plan for AC when bleeding stabilized
-To have OP colonoscopy and EGD on 04/15, to start DOAC and have DCCV afterwards if no signs of active bleed
#CAD s/p CABG and PCI
-Home regimen includes metoprolol, DAPT, high intensity statin
-Last stent was in 2017, no indication for DAPT after 1 year post stent
-Discontinued Plavix, continued on aspirin and remainder of CAD regimen
-Planning for EGD/colonoscopy after Plavix washout
#Primary hypertension
-No known history of hypertensive systemic disease
-Home regimen includes amlodipine, metoprolol succinate, valsartan�HCTZ
-Holding HCTZ in the context of bleeding remainder of meds with hold parameters continued
-Continue to monitor BP
#H/O ischemic colitis
-Likely related to ASCVD history
-Low suspicion for recurrence, no abdomen pain
Diet: Low residue
DVT prophylaxis: SCDs
CODE STATUS: Full code
Anticipated Discharge: Today
Subjective/Interval History
-
Date of Service: April 09, 2025
Seen and examined at the bedside. No acute events reported overnight. AFVSS this morning
Hemoglobin uptrending. Iron studies with severe LILIANA, ferritin 5.6.
Patient states he feels really well. Cardiology and GI planning for OP procedures due to Plavix washout
Objective Data
-
Labs:
Laboratory Results
04/09/25
07:00
WBC 7.5
Hgb 9.7 L
Hct 33.3 L
Plt Count 304
Sodium Pending
Potassium Pending
Chloride Pending
Carbon Dioxide Pending
BUN Pending
Creatinine Pending
Glucose Pending
Calcium Pending
Vital Signs:
Vital Signs
Temp Pulse Resp BP Pulse Ox
98.8 F 76 18 117/76 100
04/09/25 07:55 04/09/25 08:19 04/09/25 07:55 04/09/25 08:19 04/09/25 07:55
I&O
04/08/25 04/09/25 04/10/25
06:59 06:59 06:59
Intake Total 960 / 960
Output Total 1300 / 1300
Balance -340 / -340
Review of Systems
-
History Source: Patient
All other systems: Reviewed and negative
Physical Exam
-
General: Well Developed, Well Nourished, No Apparent Distress and Comfortable
HEENT: Normocephalic, Atraumatic, Moist Mucous Membranes and Anicteric
Respiratory: Clear to Auscultation and Non Labored Respirations; Negative Accessory Resp Muscle Use
Cardiac: S1/S2 and Irregular Rhythm; Negative Murmur, Rub, JVD, Gallop or Tachycardic
GI: Soft, Nontender and Nondistended
Musculoskeletal: No Clubbing, No Cyanosis and No Edema
Skin: Warm, Dry and Normal Turgor; Negative Rash
Neuro: AO x 3 and Nonfocal/Grossly Intact; Negative Tremors
Psych: Calm
Data Reviewed
-
Labs: Labs Reviewed by me and Discussed with Physician (Behavioral Health Specialist, steam train driver)
[2025-04-09 09:24] LABS: Blood Urea Nitrogen 20 mg/dl (9-20); Calcium 9.5 mg/dl (8.4-10.2); Carbon Dioxide 28 mmol/L (22-30); Chloride 105 mmol/L (98-107); Estimated Creatinine Clearance 45 ml/min; Glucose 119 mg/dl (70-99); Potassium 3.9 mmol/L (3.5-5.1); Sodium 139 mmol/L (135-145); eGFR 57.65
[2025-04-09 11:58] VITALS: BP 112/72
[2025-04-09] MEDS: FERRLECIT 110 MG IV (14:56)
[2025-04-09 15:00] VITALS: BP 123/74
--- NOTE | 2025-04-09 15:54 | DOWNTIME ---
There was a [employer] Client [employer] Carrier Driver Downtime on 04/09/2025 from 1230 to 04/09/2025 at 1550. Downtime documentation of patient's care, including medication administrations, has been reconciled in the electronic record per guidelines. Refer to the
patient's paper chart under the miscellaneous tab to see printed paper medication records and downtime forms.
--- NOTE | 2025-04-09 16:15 | W.PN.GI.CBS2 ---
Today's Communication / Plan
-
EGD/colonoscopy on Monday after Plavix washout
Ok to c/w ASA
Anticipate to resume plavix and start eliquis monday to stop ASA then pending above results
Above d/w hospitalist pt and cardiology
Ok with D/C today
Will sign off please call with ?
Assessment / Plan
-
Pt is a 74yo with hx CAD with prior CABG/stents on chronic Plavix , HTN, diverticulitis with prior resection, prior ischemic colitis, GERD, esophagitis, HTN, hemorrhoidectomy with onset of shortness of breath with concern for cardiac etiology with
CHF and also noted with new onset afib. Asked to see with anemia with hbg 8.8 on admission with MCV 66. Prior hbg in December 9.9 with MCV 70 but noted normal in 11/2023. Noted heme neg in ER. Last EGD [address] Bee with noted gastritis,
normal duodenum and mild chronic inactive gastritis, bx neg. colonoscopy 2020with Dr. Bee with TA polyps, neg h pylori, neg metaplasia. hx occasional NSAID use 1 dose per month.
Impression
-shortness of breath on admission
-occasional bright red blood per rectum
-new afib on admission
-elevated BNP
-hx CAD stent/CABG on chronic Plavix
-HTN
-diverticulitis with prior resection
-hx ischemic colitis
-GERD
-esophagitis
-HTN
-hemorrhoidectomy
Recommendations
- Will need plavix washout
- C/w ASA 81mg
- Case d/w cardiology. Plan to do EGD/colonoscopy OP on 04/15
- Prep instructions and prescription sent. He is agreeable and understands to hold plavix and eliquis for now. Anticipate to start post EGD/colonoscopy
- He will also call cardiology to get OP FU with Dr Solomon as well
-
Ok from GI perspective for hosp d/c today
Will sign off please call for ?
Total Time Spent with Patient (in minutes): 55mins spent coordinating care with scheduling cardiology and hospitalist
Subjective
Subjective
Date of Service: April 09, 2025
He feels well no SOB or CP. Tolerating diet without abd pain or N/V wants home d/c
Objective
Data Reviewed
Laboratory Data:
Laboratory Results
04/09/25 07:00
04/09/25 07:00
Laboratory Results
Magnesium 1.7 mg/dl (1.6-2.3) 04/08/25 10:06
Total Bilirubin 0.6 mg/dl (0.2-1.3) 04/08/25 04:09
AST 45 U/L (17-59) 04/08/25 04:09
ALT 32 U/L (0-50) 04/08/25 04:09
Alkaline Phosphatase 57 U/L (38-126) 04/08/25 04:09
Vital Signs and I&O:
Vital Signs
Temp Pulse Resp BP Pulse Ox
98.1 F 83 18 112/72 98
04/09/25 11:58 04/09/25 11:58 04/09/25 11:58 04/09/25 11:58 04/09/25 11:58
I&O
04/08/25 04/09/25 04/10/25
06:59 06:59 06:59
Intake Total 960 / 960
Output Total 1300 / 1300
Balance -340 / -340
Physical Exam
Physical Exam
GEN: No acute distress, conversant, pleasant
HEENT: anicteric, extraocular movements intact, clear oropharynx without exudates
GI: soft,non distended, not tender to palpation, normal active bowel sounds, no hepatosplenomegaly
EXT: warm, well perfused, trace edema bilaterally
NEURO: AAOx3, non-focal
--- NOTE | 2025-04-09 17:03 | CM ---
Met with patient to obtain information for assessment. Patient stated that he lives with his in a one story home with no steps to enter. He described himself as independent with all of his ADLs, personal care, bathing and dressing. 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 He has never had VN or been to a SNF. He does not have any DME.
Patient has a prescription plan and uses, [facility] in [place] for all of his medications.
Patient's PCP is, Radha Pennington.
Received consult for medication check: Farxiga and Jardiance 1x a day 30 days. Farxiga 10 mg daily 143.90 Jardiance-151.03 Provided by Jeniffer at [facility].
IMM reviewed and signed.
Plan: Case management will continue to follow and assist with discharge planning. Patient will return home no needs.
--- NOTE | 2025-04-09 17:30 | W.DCSUMMARY ---
Discharge Summary
Discharge Data
Date of Admission: 04/08/25
Date of Discharge: 04/09/25
Total time spent discharging patient (in min): 35
-
Pending Results: No
Hospital Course
Discharging Physician :�Brandon Romo DO
Disposition :���� Home with close follow-up at GI and cardiology offices
Principal Discharge diagnosis :�
Acute blood loss anemia
Symptomatic anemia
GI bleeding/hematochezia
Iron deficiency anemia
New onset AF
Dyspnea
HFpEF(?)
Chronic Discharge diagnosis :�
CAD s/p PCI + CABG
Hypertension with LVH
Moderate aortic regurgitation
History of diverticulosis s/p sigmoidectomy
History of ischemic colitis
History of hemorrhoidectomy
Hospital Course :�
74-year-old male that presented to the hospital after awaking in the middle of night with shortness of breath and orthopnea. Symptoms did not improve so he came to the hospital for further evaluation. Also mentioned episodes of rectal bleeding
that he associated with hemorrhoids, states at times he filled the toilet bowl with blood. Upon arrival hemoglobin dropped from near 13.5-8.8. Hemoglobin subsequently stabilized and then started to improve with hemoglobin prior to discharge at
9.7. Iron study showed significant iron deficiency anemia with ferritin 5.6. Also on arrival was found to be in new onset atrial fibrillation with rate control on home beta-todd. Was evaluated by gastroenterology and cardiology. Due to being
on aspirin with Plavix (though DAPT not indicated as last stent in 2017) and requirements for Plavix washout decision for inpatient EGD and colonoscopy was deferred until Plavix levels were minimal due to potential for bleeding with polypectomy and
other interventional procedures. He was evaluated by cardiology who wanted to perform DCCV though not prior to being started on anticoagulant. Decision was made to continue with home aspirin alone and have patient follow-up with gastroenterology
on 04/15/2025 in office for EGD and colonoscopy. Following findings of the procedure decision will be made to transition his aspirin to regimen that includes Plavix + DOAC (aspirin to be discontinued in this case). Will also follow-up for decision
on DCCV. At time of discharge hemoglobin was stable, he was in rate controlled atrial fibrillation without any symptoms. Advised him to come back to the ED if he develops recurrence of bleeding. Of note, he did receive short course of IV Lasix
due to his orthopnea though cardiology felt him to be euvolemic. Symptoms more likely associated with blood loss anemia and possibly component of atrial fibrillation though symptomatically was resolved prior to admission while in AF.
Consultants :
Cardiology: Melvin Kelly MD
Gastroenterology: Bettye Mtz DO
Important imaging findings :�
Transthoracic echocardiogram (04/08/2025)
CONCLUSIONS
Normal biventricular size and systolic function without regional wall motion abnormality.
Mild concentric left ventricular hypertrophy.
Moderate aortic regurgitation.
Dilated aortic root and ascending aorta.
Compared to previous echo 06/06/24, the aortic regurgitation has increase from mild to moderate
Procedure findings :� N/A
Follow-up :
Follow-up with GI in office for EGD and colonoscopy on 04/15/2025
Follow-up in office with cardiology within 1 to 2 weeks for consideration of DCCV
Likely to be transitioned from aspirin to Plavix + DOAC if no active bleeding on EGD/colonoscopy
Follow-up with PCP in 1 to 2 weeks from
Discharge Plan
-
Patient Disposition: Home (Routine Discharge)
Discharge Diagnosis/Procedures: New onset atrial fibrillation
Hematochezia
Symptomatic anemia
Iron deficiency anemia
Condition: Fair
Diet: Low Cholesterol, Low Residue and No added salt
Activity: As tolerated
Driving Restrictions: No driving for 24 hours
Bathing Restrictions: None
Blood Work: Repeat iron studies and CBC with your family doctor in 4 to 6 weeks
Others Tests: EGD and colonoscopy on 04/15/2025 with gastroenterology
DCCV (electrical cardioversion) to be scheduled with reverberatory furnace supervisor
Activity Restrictions/Additional Instructions:
Attend your appointment with gastroenterology on 04/15/2025 for EGD and colonoscopy
Follow-up in office with cardiology for consideration of cardioversion
Follow-up with your family doctor within 1 to 2 weeks of discharge from the hospital
Instructions: GI bleed - Discharge instructions
Referrals:
Bettye Mtz MD [Active] - in less than 1 week
Referral Note: 04/15 EGD/colonoscopy appt
Melvin Kelly MD [Active] - in less than 1 week
Radha Pennington DO [Family Provider]
Additional Discharge Medication Instructions: Start ferrous sulfate 325 mg daily
Take pantoprazole 40 mg twice daily until your EGD and colonoscopy
Hold valsartan and hydrochlorothiazide until you see your reverberatory furnace supervisor or family doctor in office and are told to resume
Hold Plavix until after your colonoscopy and EGD this upcoming Monday
After your colonoscopy and EGD, you may be switched from aspirin alone to Plavix with a new medicine (Eliquis or Xarelto)
Prescriptions:
New
pantoprazole 40 mg tablet,delayed release (DR/EC)
40 mg PO BID 7 Days Qty: 14 0RF
ferrous sulfate 325 mg (65 mg iron) tablet
325 mg PO DAILY 30 Days Qty: 30 0RF
Continued
atorvastatin 80 MG tablet
80 mg PO DAILY
aspirin 81 MG tablet,chewable
81 mg PO DAILY
metoprolol succinate 100 MG tablet extended release 24 hr
100 mg PO BID
amlodipine 5 MG tablet
5 mg PO DAILY
folic acid 1 MG tablet
1 mg PO DAILY
ezetimibe 10 MG tablet
10 mg PO DAILY
melatonin 10 mg Tablet
10 mg PO HS
Held
clopidogrel 75 MG tablet
75 mg PO DAILY Qty: 30 11RF
Hold Instructions: Until after EGD and colonoscopy
valsartan-hydrochlorothiazide 160-25 mg Tablet
1 tab PO DAILY
Hold Instructions: Until you see your PCP or reverberatory furnace supervisor in office
Discontinued
pantoprazole 40 MG tablet,delayed release (DR/EC)
40 mg PO DAILY
Discharge Orders:
Discharge Patient (As Directed); Ordered 04/09/25
Ordered By: Brandon Romo
Discharge Date and Time
Discharge Date/Time: 04/09/25 16:59
Print Language: CHINESE
== END 2025-04-09 16:59 | disposition home or self-care (01) | DRG 309 ==
LOC: 4 EAST ACU 06:48
PROVIDERS: Nurse Practitioner Adult Health; ADMITTING PHYSICIAN Internal Medicine; ATTENDING PHYSICIAN Internal Medicine; EMERGENCY PHYSICIAN Emergency Medicine; FAMILY PHYSICIAN Family Medicine; OTHER PHYSICIAN Internal Medicine Gastroenterology; OTHER PHYSICIAN Student in an Organized Health Care Education/Training Program
DX: I48.91 Unspecified atrial fibrillation (principal); D62 Acute posthemorrhagic anemia; K55.9 Vascular disorder of intestine, unspecified; D50.9 Iron deficiency anemia, unspecified; I50.9 Heart failure, unspecified; I11.0 Hypertensive heart disease with heart failure; K21.00 Gastro-esophageal reflux disease with esophagitis, without bleeding; I25.10 Atherosclerotic heart disease of native coronary artery without angina pectoris; I35.1 Nonrheumatic aortic (valve) insufficiency; I77.810 Thoracic aortic ectasia; Z79.02 Long term (current) use of antithrombotics/antiplatelets; Z95.1 Presence of aortocoronary bypass graft; Z79.82 Long term (current) use of aspirin; Z79.899 Other long term (current) drug therapy; Z87.19 Personal history of other diseases of the digestive system; Z90.49 Acquired absence of other specified parts of digestive tract
CPT/HCPCS: 71046; 80048; 80053; 80061; 82728; 83540; 83550; 83735; 83880; 84443; 84484; 85025; 85027; 85045; 85379; 93005; 93306; 96374; 96375; 99285; J2916

== ENCOUNTER 2025-04-15 06:20 | Day surgery (SDC) | payer OTHER, SELFPAY | END 2025-04-15 12:42 | disposition home or self-care (01) | LOC: GI 06:20 | PROVIDERS: ATTENDING PHYSICIAN Internal Medicine Gastroenterology | DX: D50.9 Iron deficiency anemia, unspecified (principal); K64.8 Other hemorrhoids; K64.4 Residual hemorrhoidal skin tags; K57.30 Diverticulosis of large intestine without perforation or abscess without bleeding; K44.9 Diaphragmatic hernia without obstruction or gangrene; K31.89 Other diseases of stomach and duodenum; D12.2 Benign neoplasm of ascending colon; K63.5 Polyp of colon; K29.50 Unspecified chronic gastritis without bleeding; K31.7 Polyp of stomach and duodenum; Z98.0 Intestinal bypass and anastomosis status | CPT/HCPCS: 45385; 45380; 43239; 88305; 88342 ==

== ENCOUNTER 2025-06-18 08:08 | Day surgery (SDC) | payer OTHER, SELFPAY | END 2025-06-18 10:50 | disposition home or self-care (01) | LOC: CATH 08:08 | PROVIDERS: ATTENDING PHYSICIAN Internal Medicine Cardiovascular Disease; FAMILY PHYSICIAN Family Medicine; OTHER PHYSICIAN Internal Medicine | DX: I48.0 Paroxysmal atrial fibrillation (principal); I50.32 Chronic diastolic (congestive) heart failure; Z95.1 Presence of aortocoronary bypass graft; Z79.01 Long term (current) use of anticoagulants; I25.10 Atherosclerotic heart disease of native coronary artery without angina pectoris; I10 Essential (primary) hypertension; Z79.82 Long term (current) use of aspirin; Z79.899 Other long term (current) drug therapy | CPT/HCPCS: 92960; 93005 ==

== ENCOUNTER → 2025-06-27 11:09 | Outpatient (REF) | payer OTHER, SELFPAY | LOC: HWRCS 11:09 | PROVIDERS: ATTENDING PHYSICIAN Internal Medicine; FAMILY PHYSICIAN Family Medicine | DX: I25.810 Atherosclerosis of coronary artery bypass graft(s) without angina pectoris (principal) | CPT/HCPCS: 78452; 93017; A9500; J2785 ==

== ENCOUNTER 2025-07-06 16:39 | Emergency (ER) | payer OTHER, SELFPAY ==
[2025-07-06 16:41] VITALS: BP 133/85
[2025-07-06 16:58] VITALS: BMI 27.0
[2025-07-06 17:00] VITALS: BP 138/79
--- NOTE | 2025-07-06 17:16 | ED.GENMED ---
History of Present Illness
General
Chief Complaint: Cardiac Symptoms
Source: patient
Exam Limitations: none
Time Seen by Provider: 07/06/25 17:00
History of Present Illness
History of Present Illness:
See MDM
Past History
Past History
ED Past Medical History: CAD, GERD, HTN, Hypercholesterolemia and Other (perirectal abscess, BPH)
ED Past Surgical History: Appendectomy, Bowel resection (Due to diverticulitis) and Cardiac (CABG 2000, PTCA with stent 2016)
Social History
Tobacco: Non-smoker
Alcohol: Occasional
Personal:
Living: with family
Employment: Retired
Family History
Family History: Other (Noncontributory)
Phy Exam
Physical Exam
Physical Exam:
See MDM
Course
Orders/Labs/Results
Orders:
Orders
07/06/25 16:43
EKG [Electrocardiogram (*1)] Urgent
Reason for Study: Shortness of Breath
EKG- Treatment ONCE
07/06/25 17:07
Complete Blood Count/With Diff Urgent
Comprehensive Metabolic Panel Urgent
Troponin I Urgent
07/06/25 17:14
Diltiazem HCl [Cardizem] 10 mg IV NOW STA
07/06/25 18:35
Propofol [Diprivan] 20 ml .ROUTE .STK-MED
07/06/25 18:54
Electrocardiogram (*1) Urgent
Reason for Study: Chest Pain
EKG- Treatment ONCE
07/06/25 19:17
Amiodarone [Pacerone] 400 mg PO NOW STA
Metoprolol [Lopressor] 50 mg PO NOW STA
Abnormal Lab Results
07/06/25
17:07
Hgb 12.1 L g/dL
(13.0-18.0)
MCV 68.7 L fL
(80.0-94.0)
MCH 21.2 L pg
(27.0-31.0)
MCHC 30.9 L g/dL
(33.0-37.0)
RDW 18.5 H %
(11.5-14.5)
Absolute Monos (auto) 0.8 H 10^3/uL
(0.1-0.6)
Potassium 3.4 L mmol/L
(3.5-5.1)
Glucose 102 H mg/dl
(70-99)
07/06/25 17:07
07/06/25 17:07
Vital Signs
Initial and Last Documented VS:
Initial Vital Signs
Temp Pulse Resp BP Pulse Ox
98.1 F 98 24 133/85 100
07/06/25 16:41 07/06/25 16:41 07/06/25 16:41 07/06/25 16:41 07/06/25 16:41
Last Documented Vital Signs
Temp Pulse Resp BP Pulse Ox
98.4 F 64 18 123/75 98
07/06/25 18:55 07/06/25 18:55 07/06/25 18:55 07/06/25 18:55 07/06/25 18:55
Procedures
Moderate Sedation
ASA Risk Score: Class II
Chart and allergies reviewed: Yes
Consent for anesthesia obtained: Yes
Time out completed (validating right patient & procedure): Yes
Moderate Sedation Start Time(when first medication is given): 18:45
History of difficult intubation: No
Airway free of obstruction: Yes
Patient has a gag reflex: Yes
Patient is able to open mouth: Yes
Patient has no dentures: Yes
Patient has no loose teeth: Yes
Medication administered by Provider during Moderate Sedation: IV Propofol (mg)
Total dose administered: 100
Time drug administered: 18:45
Moderate Sedation Procedure End Time: 18:55
Cardioversion
Indication:: Afib
Performed by:: Cristhian Yanez DO
Synchronized?: Yes
Energy Used: Other (100 J)
Number of attempts: 1
Successful?: Yes
Complications: None
ASA Risk Score: Class II
Any reaction or bad outcome to prior sedation/anesthesia?: No history of a reaction
Sedation level to be attained: moderate
Chart and allergies reviewed: Yes
Patient reassessed prior to sedation: Yes
Time out completed at (validating right patient & procedure): 18:45
History of difficult intubation: No
Airway free of obstruction: Yes
Patient has a gag reflex: Yes
Patient is able to open mouth: Yes
Patient has no dentures: Yes
Patient has no loose teeth: Yes
Medication administered by Provider during Moderate Sedation: IV Propofol (mg)
Total dose administered: 100
Time drug administered: 18:45
Start Time: 18:45
Stop Time: 18:55
MDM/Problems Addressed
Differential Diagnosis Includes:
CHIEF COMPLAINT(S)
Dizziness and shortness of breath.
HISTORY OF PRESENT ILLNESS
The patient is a 75-year-old male with a history of atrial fibrillation who presents with dizziness and difficulty breathing. The patient reports that he underwent cardioversion last week to address atrial fibrillation but is currently experiencing
symptoms consistent with a recurrence. The dizziness began approximately eight days ago and has persisted. Shortness of breath is exacerbated with exertion and improves when laying down. The patient denies chest pain but notes discomfort due to the
breathing difficulties. He has experienced occasional leg swelling and reports disturbed sleep due to breathing issues. The patient was on vacation, which may have contributed to the change in symptom perception. Despite taking his prescribed
medication, including a high dose of Metoprolol and Eliquis, he feels symptomatic and expresses concerns about his ability to live with these recurring episodes of atrial fibrillation.
PAST MEDICAL AND SURIGICAL HISTORY
History of atrial fibrillation.
MEDICATIONS
Metoprolol, high-dose, twice daily; Eliquis. The patient is adherent to the medication regimen.
PHYSICAL EXAM
General: Alert, no acute distress.
Skin: Warm, dry.
Head: Normocephalic, atraumatic
Neck: Appears supple, trachea midline.
Eyes, Ears, Nose, Mouth, and Throat: Oral mucosa moist.
Cardiovascular: No signs of cyanosis. Irregular rhythm, regular rate
Respiratory: Respirations are non-labored.. Lungs clear
Abdomen: Non-distended
Musculoskeletal: No deformities
Neurological: No focal neurological deficit observed.
Psychiatric: Cooperative, appropriate mood and affect.
PROBLEM LIST
- Acute: Atrial fibrillation recurrence, dizziness, shortness of breath.
PLAN
- Reach out to the patients insole buffer, Dr. Vazquez, to discuss current symptoms and management plan, which may include cardioversion.
- Conduct basic blood work.
- Administer a dose of Cardizem while awaiting further instructions from the insole buffer to potentially alleviate symptoms.
- Discuss further potential for cardiac ablation with the insole buffer as a long-term solution.
DIFFERENTIAL DIAGNOSIS
The Differential Diagnosis includes, in no particular order and is not limited to:
1. Atrial fibrillation with rapid ventricular response
2. Congestive heart failure
3. Pulmonary embolism
4. Myocardial infarction
5. Anxiety-induced hyperventilation
6. Anemia
7. Chronic obstructive pulmonary disease exacerbation
8. Thyrotoxicosis
9. Dehydration
10. Vestibular dysfunction
EKG
My independent EKG interpretation is:
- Time of EKG: Not specified in the over the road driver.
- Rhythm: Rate controlled Atrial Fibrillation (AFIB).
- Heart Rate: 87 beats per minute.
- Lindsay: Normal.
- Notable Intervals: Not specified in the over the road driver.
- Abnormalities: Presence of Premature Ventricular Contractions (PVCs), No ST elevation observed.
07/06/25 - 19:11
The patient remains symptomatic despite rate-controlled atrial fibrillation after the Cardizem bolus. Consent obtained for moderate sedation and synchronized cardioversion, which was well-tolerated without complications. Consulted with cardiology
regarding ongoing issues, discussed starting amiodarone at 400 mg BID for two weeks, transitioning to 200 mg daily. Plan to schedule follow-up in the office in the next few weeks. Adjusted metoprolol dosage to 50 mg BID from 100 mg BID with the
addition of amiodarone.
SUMMARY OF ENCOUNTER
The patient presented with symptomatic atrial fibrillation. Despite being rate controlled, the patient was unable to tolerate the persistent symptoms. After signing consent, the patient underwent successful cardioversion and is now in a sinus
rhythm. Given the frequent occurrences, the case was discussed with cardiology, leading to an adjustment in medication.
MANAGEMENT OF THE PATIENTS CARE WAS DISCUSSED WITH
The patients case was discussed with a insole buffer. Adjustments were made to decrease the metoprolol dosage and initiate amiodarone.
PLAN
Close follow-up with the insole buffer to monitor the efficacy of the new medication regimen and address any potential side effects.
MEDICATION RECONCILIATION
Metoprolol dosage adjusted to a lower amount. Amiodarone initiated to supplement treatment for atrial fibrillation.
MEDICAL DECISION MAKING
- Number and Complexity of Problems Addressed: Chronic conditions affecting care are atrial fibrillation. DDx includes:
1. Atrial fibrillation with rapid ventricular response
2. Congestive heart failure
3. Pulmonary embolism
4. Myocardial infarction
5. Anxiety-induced hyperventilation
6. Anemia
7. Chronic obstructive pulmonary disease exacerbation
8. Thyrotoxicosis
9. Dehydration
10. Vestibular dysfunction
- Data:
Category 1
No specific tests or records reviewed were mentioned beyond those already addressed in direct patient care.
Category 3
Discussion of management with a insole buffer who contributed to the decision-making process.
DIAGNOSIS
- Atrial fibrillation (ICD-10-CM: I48.91)
*Pulse Oximetry
SaO2: 100
Oxygen Mode of Delivery: Room air
Patient hypoxic: no
*Critical Care Note
Total Time (30-74mins, 75-104mins- exclusive of procedures): Not Applicable
ED Attending Note
-
Portions of this chart may have been created with voice recognition software.� Occasional wrong word or��sound alike� substitutions may have occurred due to the inherent limitations of voice recognition software.
Discharge Plan
Departure
Patient Disposition: Home (Routine Discharge)
Date of Disposition: 07/06/25
Time of Disposition: 19:20
Patient with high blood pressure during this ER visit?: No
Discharge Problem:
A-fib
Instructions: MODERATE SEDATION ADULT
Prescriptions:
New
amiodarone 200 mg tablet
See Rx Instructions .ROUTE .COMPLEX Qty: 60 0RF
Rx Instructions:
400 mg BID for 2 weeks. After 2 weeks, take 200mg daily
metoprolol succinate 50 mg tablet extended release 24 hr
50 mg PO BID Qty: 60 0RF
No Action
atorvastatin 80 MG tablet
80 mg PO DAILY
clopidogrel 75 MG tablet
75 mg PO DAILY Qty: 30 11RF
aspirin 81 MG tablet,chewable
81 mg PO DAILY
metoprolol succinate 100 MG tablet extended release 24 hr
100 mg PO BID
amlodipine 5 MG tablet
5 mg PO DAILY
folic acid 1 MG tablet
1 mg PO DAILY
ezetimibe 10 MG tablet
10 mg PO DAILY
melatonin 10 mg Tablet
10 mg PO HS
Eliquis 5 mg Tablet
5 mg PO BID
pantoprazole 40 mg tablet,delayed release (DR/EC)
40 mg PO DAILY
valsartan-hydrochlorothiazide 160-25 mg Tablet
1 tab PO DAILY
Referrals:
Radha Pennington DO [Family Provider, Family Practice]
Activity Restrictions/Additional Instructions:
Please return for any worsening symptoms.
You may return at any time if you have further concerns.
The insole buffer is aware you are here today and received another cardioversion. We are going to start a new blood pressure medicine called amiodarone. Per the insole buffer, please start the amiodarone at 400 mg twice a day for 2 weeks and then
transition to 200 mg daily. Since we are adding another blood pressure medicine, please decrease your metoprolol to 50 mg twice a day. They will follow you up closely.
Thank you for choosing [facility].
Interventions
Interventions:
*Risk Screen - Suicide Last Done: 07/06/25 16:42
*General Assessment Last Done: 07/06/25 16:42
*Neglect/Abuse Screening Last Done: 07/06/25 16:42
*ED- Fall Risk Assessment Last Done: 07/06/25 17:16
*ED COVID-19 Vaccine History Last Done: 07/06/25 16:42
ED- Pulmonary Assessment Last Done: 07/06/25 17:06
ED- Cardiac Assessment Last Done: 07/06/25 17:05
Discharge Date and Time
Print Language: [place]
[2025-07-06 17:21] LABS: Hematocrit 39.2 % (39.0-52.0); Hemoglobin 12.1 g/dL (13.0-18.0); Mean Corp Hgb Conc. 30.9 g/dL (33.0-37.0); Mean Corpuscular Volume 68.7 fL (80.0-94.0); Nucleated Red Blood Cells % 0 % (-); Platelet Count 292 10^3/uL (130-400); Red Cell Dist. Width 18.5 % (11.5-14.5)
[2025-07-06] MEDS: CARDIZEM 10 MG IV (17:29)
[2025-07-06 17:34] VITALS: BP 109/75
[2025-07-06 17:34] LABS: ALT (SGPT) 15 U/L (0-50); AST (SGOT) 19 U/L (17-59); Albumin 4.4 g/dl (3.5-5.0); Alkaline Phosphatase 81 U/L (38-126); Blood Urea Nitrogen 10 mg/dl (9-20); Calcium 9.5 mg/dl (8.4-10.2); Carbon Dioxide 27 mmol/L (22-30); Chloride 106 mmol/L (98-107); Estimated Creatinine Clearance 58 ml/min; Glucose 102 mg/dl (70-99); Potassium 3.4 mmol/L (3.5-5.1); Sodium 140 mmol/L (135-145); Total Protein 7.2 g/dl (6.3-8.2); eGFR > 60.00
[2025-07-06 17:47] LABS: Troponin I < 0.012 ng/ml
[2025-07-06 18:42] VITALS: BP 134/81
[2025-07-06 18:50] VITALS: BP 118/88
[2025-07-06 18:55] VITALS: BP 123/75
[2025-07-06] MEDS: LOPRESSOR 50 MG PO (19:27)
== END 2025-07-06 19:36 | disposition home or self-care (01) ==
LOC: EMR 16:39
PROVIDERS: EMERGENCY PHYSICIAN Student in an Organized Health Care Education/Training Program; FAMILY PHYSICIAN Family Medicine
DX: I48.91 Unspecified atrial fibrillation (principal); I25.810 Atherosclerosis of coronary artery bypass graft(s) without angina pectoris; I10 Essential (primary) hypertension; E78.00 Pure hypercholesterolemia, unspecified; K21.9 Gastro-esophageal reflux disease without esophagitis; N40.0 Benign prostatic hyperplasia without lower urinary tract symptoms; Z79.01 Long term (current) use of anticoagulants; Z95.1 Presence of aortocoronary bypass graft; Z95.5 Presence of coronary angioplasty implant and graft
CPT/HCPCS: 99285; 96374; 92960; 80053; 84484; 85025; 93005

== ENCOUNTER → 2025-10-16 09:13 | Outpatient (REF) | payer OTHER, SELFPAY | LOC: HWRCS 09:13 | PROVIDERS: ATTENDING PHYSICIAN Internal Medicine; FAMILY PHYSICIAN Family Medicine | DX: I25.810 Atherosclerosis of coronary artery bypass graft(s) without angina pectoris (principal); I49.3 Ventricular premature depolarization; I48.0 Paroxysmal atrial fibrillation; I50.32 Chronic diastolic (congestive) heart failure | CPT/HCPCS: 93306 ==

== ENCOUNTER 2025-10-30 06:04 | Day surgery (SDC) | payer OTHER, SELFPAY ==
[2025-10-23 09:27] VITALS: BMI 28.6
[2025-10-23 09:46] LABS: Hematocrit 41.9 % (39.0-52.0); Hemoglobin 13.0 g/dL (13.0-18.0); Mean Corp Hgb Conc. 31.0 g/dL (33.0-37.0); Mean Corpuscular Volume 74.0 fL (80.0-94.0); Platelet Count 258 10^3/uL (130-400); Red Cell Dist. Width 18.1 % (11.5-14.5)
[2025-10-23 10:48] LABS: ALT (SGPT) 16 U/L (0-50); AST (SGOT) 24 U/L (17-59); Albumin 4.4 g/dl (3.5-5.0); Alkaline Phosphatase 70 U/L (38-126); Blood Urea Nitrogen 11 mg/dl (9-20); Calcium 9.8 mg/dl (8.4-10.2); Carbon Dioxide 27 mmol/L (22-30); Chloride 103 mmol/L (98-107); Estimated Creatinine Clearance 50 ml/min; Glucose 110 mg/dl (70-99); Potassium 4.4 mmol/L (3.5-5.1); Sodium 139 mmol/L (135-145); Total Protein 7.5 g/dl (6.3-8.2); eGFR > 60.00
[2025-10-30] VITALS (13 sets, daily range): BP systolic 102–156; BP diastolic 58–89; BMI 28.6
[2025-10-30 08:44] LABS: ACT-LR - POC 329 Seconds (116-155)
[2025-10-30 09:02] LABS: ACT-LR - POC 314 Seconds (116-155)
--- NOTE | 2025-10-30 09:23 | ITS.CL.ABL ---
[facility] - Ablation
Ablation
Procedure Report:
AFIB ablation:
Mr. Rahman is a very pleasant 75 yr old gentleman with symptomatic paroxysmal AF, is recommended for atrial fibrillation ablation.
Date of the Procedure:
10/30/2025
Indications:
Paroxysmal atrial fibrillation
Pre-Operative Diagnosis:
Paroxysmal atrial fibrillation
Post-Operative Diagnosis:
Paroxysmal atrial fibrillation
Procedure Performed:
Atrial fibrillation ablation with Pulsed-Field approach for pulmonary vein isolation
Performing Physician:
Didier Villalobos MD
Assistants:
EP staff
Anesthesia:
See anesthesia records
Detailed Description of the Procedure:
Written informed consent was obtained from the patient after a full explanation of the risks and benefits of the procedure including the risks of sedation and anesthesia.
The patient was brought to the electrophysiology laboratory in stable condition in fasting state. Continuous electrocardiographic and hemodynamic monitoring was initiated.
The initial rhythm was sinus.
The procedure site was meticulously prepared with surgical scrub and allowed to dry with no pooling. Sterile draping was applied to cover the procedure site. The image intensifier was draped with sterile bag and positioned over the patient. After
infusion of local anesthetic, vascular access was obtained under ultrasound guidance and sheaths were placed over guide wire as detailed below.
Sheath and Catheter Placement:
The following catheters / sheaths were placed
Sheaths:
17Fr steerable sheath ([employer]�, [employer]) in right femoral
10Fr in right femoral vein
Catheters:
MILAN HD Grid mapping catheter � at locations of RA, LA
Farawave� PFA catheter
ICE catheter � AcuNav - at locations of RA, SVC, and RV.
Intracardiac ECHO:
An 8-Cymraes AcuNav intracardiac ECHO (ICE) probe was advanced through the 10-Cymraes sheath in the right femoral vein into the right atrium under fluoroscopic and ICE ultrasound image guidance and a baseline ECHO study was performed. The left atrial
size was normal. There was moderate tricuspid regurgitation. The aortic valve was grossly normal. There was normal left ventricular systolic functions. There is trace pericardial effusion. All the four veins were identified and has flow identified.
There was good flow noted in the OSMAN.
During the procedure, ICE was used for monitoring of complications, guidance of trans-septal puncture, monitor the catheter position and tracking ablation lesions. No change in the pericardial space noted throughout the procedure.
Trans-septal Puncture:
Heparin was initiated and infused to maintain appropriate ACT. A pigtail guidewire was advanced through the 9-Cymraes sheath in the right femoral vein into the superior vena cava under fluoroscopic and ICE guidance. The 9-Cymraes sheath was exchanged
for a Faradrive sheath which was advanced into the superior vena cava. A transseptal RF pigtail via Faradrive connect system was utilized to perform the trans-septal puncture. The apparatus was withdrawn until it was in contact with the fossa
ovalis. The position was adjusted based on fluoroscopy and ultrasound images from ICE. Under fluoroscopic, hemodynamic and ICE ultrasound guidance, left atrium was cannulated by applying RF energy. Once atrial septum was cannulated, the pigtail wire
was advanced through the needle into the left atrium. The guide wire was advanced into the left superior pulmonary vein. Both the sheath and the dilator was advanced into the left atrium. The dilator with the needle was withdrawn. Blood was
aspirated from the Faradrive sheath and arterial blood confirmed. The sheath was flushed. Saline injection noted into the left atrium on ICE. The mapping catheter was advanced in the sheath into the left pulmonary vein. Left atrial pressure was
measured.
3D Electroanatomic Mapping:
Using the HD Grid catheter advanced through sheath into the left atrium, an electroanatomic map (EAM) of the left atrium was created using [employer] mapping system. The map was used for localization of catheter position and tacking of ablation
lesions.
The EAM of the left atrium showed 4 pulmonary veins with all 4 veins electrically connected to the body the LA. It showed normal voltage on the posterior and anterior wall of the LA. The LA was mildly dilated in size.
Following the EAM, preparation were made for ablation.
Ablation:
Ablation # 1: Pulmonary vein Isolation:
Glycopyrrolate 0.2 mg was given prior to the placement of ablation.
Using [employer] pulsed wave ablation system, pulmonary vein isolation was achieved. First the ablation catheter was placed in the LSPV and ostial ablation lesions were performed in a counter clock orourke approach all around the PV ostium
circumferentially using the Farapulse catheter in �Barry� formation. Then the catheter was placed on the antral location (in Disc/flower formation) and multiple ablation lesions were placed circumferentially on the antrum of the vein.
In the similar fashion, the LIPV were isolated.
Then the catheter was moved to right sided veins. The ostial and antral ablations were placed as noted above.
EPS and Confirmation of the PVI and bidirectional block:
Following achievement of entrance block at the pulmonary veins, pacing from the HD catheter in each of the four veins at 10 milliamps for 2 milliseconds showed entrance and exit block. All PVI were rechecked at the end of the case and remained
isolated. Entrance and exit block were demonstrated in all veins.
Post ablation Electroanatomic mapping:
Once ablation was completed, the EAM of the LA was done again in sinus rhythm with excellent demarcation of LA myocardium and isolated antral tissue. There was no significant scarring noted in the LA.
The LSPV had far field signals from the OSMAN and pacing differentiated the signals and exit and entrance block was confirmed.
The OSMAN had healthy signals and was not isolated.
Procedure End
ICE study was done again that showed no epicardial accumulation. No complications noted.
Following the completion of the EP study, catheters were removed. Protamine 40 mg was given at the end of the procedure and ACT was checked repeatedly. The sheaths were removed and hemostasis achieved with �Figure of 8� and manual compression after
acceptable ACT is achieved.
Total Number PFA ablation lesions
48
Left atrial Pressure:
Pre-ablation: Mean LA pressure was 8mmHg
Post-ablation: Mean LA pressure was 9mmHg
Post-ablation: Mean RA pressure was 4mmHg
Estimated Blood loss:
<10 cc
Specimens Removed:
None.
Implants / Devices:
None
Urine output:
None
Packs / Drains/ Tubes:
None
Instrument / Sponge Count Correct:
Yes
Complications of the Procedure:
None
Condition of Patient at Time of Transfer:
Hemodynamically stable with no neurological or vascular compromise.
Summary:
Successful atrial fibrillation ablation with Pulsed Field approach for pulmonary vein isolation.
Figures from the Procedure:
Figure 1: The electroanatomic mapping (EAM) of the left atrium with bipolar voltage (purple indicates normal electrical activity with prado as no myocardial muscle electric activity indicating a line of block or scar.
--- NOTE | 2025-10-30 13:48 | W.PN.UPDATE ---
Update Note
Progress Note Update
75 yo WM s/p PVI (same day). He denies cp, sob, alexy diet, voiding, EKG SR, R fem site c/d/i no HT. He will resume Eliquis tonight. He will continue amiodarone and metoprolol for at least the next few months. Activity restrictions reviewed. He will
f/u [employer] in 1 mo. He is for d/c home after 220p if groin stable
== END 2025-10-30 14:30 | disposition home or self-care (01) ==
LOC: CATH 06:04
PROVIDERS: ATTENDING PHYSICIAN Internal Medicine Cardiovascular Disease; FAMILY PHYSICIAN Family Medicine; OTHER PHYSICIAN Internal Medicine
DX: I48.0 Paroxysmal atrial fibrillation (principal); Z91.030 Bee allergy status; I25.10 Atherosclerotic heart disease of native coronary artery without angina pectoris; R06.02 Shortness of breath; I50.32 Chronic diastolic (congestive) heart failure; I11.0 Hypertensive heart disease with heart failure; Z79.899 Other long term (current) drug therapy; Z79.82 Long term (current) use of aspirin; Z79.01 Long term (current) use of anticoagulants
CPT/HCPCS: C1732; C1894; C1769; C1892; C1759; 36415; 80053; 85027; 85347; 86850; 86900; 86901; 93005; 93656; C1766